=== PATIENT | female | born 1950 | race Caucasian/White ===

== ENCOUNTER 2020-02-26 10:21 | Outpatient (CLI) | payer MEDICARE, BC, SELFPAY ==
--- NOTE | 2020-02-26 10:35 | XR_ITS ---
WS: [id number] Exam: XR knee LT 3V* [id number] Date/Time of Exam: 02/26/2020 10:48 AM Reason For Exam: S86.912A - Strain of unspecified muscle(s) and tendon(s) at lower leg level, left le g, initial encounter No acute fracture or dislocation. No joint effusion noted. Moderate degenerative narrowing of the med ial and lateral joint compartments. XR/XR knee LT 3V* [id number] IMPRESSION: 1. Moderate degenerative changes. 2. No fracture or joint effusion.
--- NOTE | 2020-02-26 10:35 | XR_ITS ---
WS: [id number] Exam: XR hip LT 2-3V wo/w pel* [id number] Date/Time of Exam: 02/26/2020 10:49 AM Reason For Exam: S76.012A - Strain of muscle, fascia and tendon of left hip, initial encounter No fracture or dislocation. [id number] degenerative narrowing of the joint compartment. Normal soft tissues. 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 XR/XR hip LT 2-3V wo/w pel* [id number] IMPRESSION: 1. Mild to moderate degenerative narrowing of the joint compartment. 2. No fracture or dislocation.
--- NOTE | 2020-02-26 10:35 | XRR_ITS ---
PROCEDURE INFORMATION: Exam: XR Lumbosacral Spine, 2 or 3 Views Exam date and time: 02/26/2020 10:49 AM Age: 70 years old Clinical indication: Pain and injury or trauma; Blunt trauma (contusions or hematomas); Low back pain; Patient HX: Patient cannot move and in fear of falling, best images possible; Additional info: S39.012a - strain of muscle, fascia and tendon of lower back, initial encounter TECHNIQUE: Imaging protocol: XR of the lumbosacral spine, 2 or 3 views. COMPARISON: CR XR hip LT 2-3V wo/w pel* [id number] 02/26/2020 10:57 AM FINDINGS: Bones/joints: No fracture, dislocation or other acute abnormalities are seen. Chronic degenerative changes are present predominantly in the facet joints with joint space narrowing sclerosis and hypertrophy. There is mild disc space narrowing. There is no significant malalignment. Soft tissues: Unremarkable. 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 No acute abnormality.
--- NOTE | 2020-02-26 10:35 | XR_ITS ---
WS: [id number] Exam: XR ankle LT min 3V* [id number] Date/Time of Exam: 02/26/2020 10:50 AM Reason For Exam: S96.912A - Strain of unspecified muscle and tendon at ankle and foot level, left noe t, initial encounter No fracture or dislocation. Medial soft tissue swelling. Mild DJD of the ankle mortise. XR/XR ankle LT min 3V* [id number] IMPRESSION: 1. No fracture or dislocation. 2. Medial soft tissue swelling. Degenerative changes.
== END 2020-02-26 10:22 | disposition home or self-care (01) ==
LOC: RAD 10:32
PROVIDERS: PCP Family Medicine; Visit Provider Nurse Practitioner Family
DX: S96.912A Strain of unspecified muscle and tendon at ankle and foot level, left foot, initial encounter (principal); S76.012A Strain of muscle, fascia and tendon of left hip, initial encounter; S86.912A Strain of unspecified muscle(s) and tendon(s) at lower leg level, left leg, initial encounter; S39.012A Strain of muscle, fascia and tendon of lower back, initial encounter; W19.XXXA Unspecified fall, initial encounter; M47.816 Spondylosis without myelopathy or radiculopathy, lumbar region; M79.89 Other specified soft tissue disorders
CPT/HCPCS: 72100; 73502; 73562; 73610

== ENCOUNTER 2020-03-04 06:00 | Outpatient (RCR) | payer MEDICARE, BC, SELFPAY | END 2020-03-10 23:59 | disposition home or self-care (01) | LOC: WPT 06:00 | PROVIDERS: Referring Provider Nurse Practitioner Family; Visit Provider Nurse Practitioner Family | DX: M54.9 Dorsalgia, unspecified (principal); G89.29 Other chronic pain; M19.90 Unspecified osteoarthritis, unspecified site; Z91.81 History of falling | CPT/HCPCS: 97110; 97163 ==

== ENCOUNTER 2020-03-11 06:00 | Outpatient (RCR) | payer MEDICARE, BC, SELFPAY | END 2020-04-10 23:59 | disposition home or self-care (01) | LOC: WPT 06:00 | PROVIDERS: Referring Provider Nurse Practitioner Family; Visit Provider Nurse Practitioner Family | DX: M54.9 Dorsalgia, unspecified (principal); G89.29 Other chronic pain; M25.559 Pain in unspecified hip; M19.90 Unspecified osteoarthritis, unspecified site; Z91.81 History of falling | CPT/HCPCS: 97110; 97112; 97530 ==

== ENCOUNTER 2020-04-11 06:00 | Outpatient (RCR) | payer MEDICARE, BC, SELFPAY | END 2020-05-11 23:59 | disposition home or self-care (01) | LOC: WPT 06:00 | PROVIDERS: Referring Provider Nurse Practitioner Family; Visit Provider Nurse Practitioner Family | DX: M54.9 Dorsalgia, unspecified (principal); G89.29 Other chronic pain; M25.559 Pain in unspecified hip; M19.90 Unspecified osteoarthritis, unspecified site; Z91.81 History of falling | CPT/HCPCS: 97110; 97112 ==